=== PATIENT | male | born 1950 | race Caucasian/White ===

== ENCOUNTER → 2018-09-22 | Outpatient (CLI) | payer OTHER | LOC: CAT 12:31 | DX: Z13.6 Encounter for screening for cardiovascular disorders (principal); E78.00 Pure hypercholesterolemia, unspecified; I25.10 Atherosclerotic heart disease of native coronary artery without angina pectoris ==

== ENCOUNTER → 2019-06-07 | Outpatient (CLI) | payer OTHER, MEDICARE | LOC: SJCVCIMAG 09:42 | DX: I65.23 Occlusion and stenosis of bilateral carotid arteries (principal); I25.10 Atherosclerotic heart disease of native coronary artery without angina pectoris; E78.00 Pure hypercholesterolemia, unspecified; I10 Essential (primary) hypertension; R93.1 Abnormal findings on diagnostic imaging of heart and coronary circulation; R09.89 Other specified symptoms and signs involving the circulatory and respiratory systems ==

== ENCOUNTER → 2020-03-14 | Outpatient (CLI) | payer OTHER, MEDICARE | LOC: SJCVCIMAG 07:07 | PROVIDERS: ATTEND Internal Medicine Cardiovascular Disease | DX: I65.23 Occlusion and stenosis of bilateral carotid arteries (principal); I25.10 Atherosclerotic heart disease of native coronary artery without angina pectoris; E11.9 Type 2 diabetes mellitus without complications; I10 Essential (primary) hypertension; E78.5 Hyperlipidemia, unspecified; Z79.899 Other long term (current) drug therapy; Z87.891 Personal history of nicotine dependence ==

== ENCOUNTER 2020-12-02 12:42 | Emergency (ER) | payer OTHER ==
[~2020-12-02] VITALS: Ht 177.8 cm; Wt 79.4 kg
[2020-12-02 13:16] LABS: ABSOLUTE NEUTROPHILS 11.4 thou/uL (1.4-8.2); BASOPHILS 0.4 % (0.0-2.0); EOSINOPHILS 0.3 % (0.0-3.0); HEMATOCRIT 43.3 % (42.0-52.0); HEMOGLOBIN 14.6 gm/dL (14.0-18.0); LYMPHOCYTES 7.7 % (24.0-44.0); MCH 30.1 pg (26.0-34.0); MCHC 33.8 g/dL (28.0-37.0); MCV 89.2 fL (80.0-100.0); MONOCYTES 4.6 % (1.0-8.0); PLATELET COUNT 204 thou/uL (150-400); RBC 4.85 mil/uL (4.50-6.00); RDW 13.7 % (10.5-14.5); WBC 13.1 thou/uL (4.0-11.0)
[2020-12-02 13:24] LABS: ANION GAP 9 mmol/L (7-16); BUN 31 mg/dL (7-18); CHLORIDE 98 mmol/L (98-107); CO2 27 mmol/L (21-32); CREATININE 1.2 mg/dL (0.7-1.3); GLUCOSE 116 mg/dL (74-106); SODIUM 134 mmol/L (136-145)
[2020-12-02] MEDS ORDERED: NORVASC5 MG PO (13:27)
[2020-12-02] MEDS ORDERED: JARDIANCE25 MG PO (13:27)
[2020-12-02] MEDS ORDERED: IRBESARTAN-HCT1 EAC1 PO (13:27)
[2020-12-02] MEDS ORDERED: LIPITOR40 MG PO (13:27)
[2020-12-02] MEDS ORDERED: FAMOTIDINE 20 M20 MG PO (13:28)
[2020-12-02] MEDS ORDERED: METFORMIN HCL500 M3 PO (13:28)
[2020-12-02] MEDS ORDERED: ZETIA10 MG PO (13:28)
[2020-12-02] MEDS ORDERED: ASA81BEC PO (13:29)
[2020-12-02] MEDS ORDERED: MAGNESIUM250 M1 PO (13:29)
[2020-12-02] MEDS ORDERED: VITAMIN B-121000 MC2 SUBLING (13:30)
[2020-12-02] MEDS ORDERED: MELATONIN3 M2 PO (13:30)
[2020-12-02] MEDS ORDERED: D3 DOTS50 MCG PO (13:30)
[2020-12-02 13:34] LABS: ALBUMIN 4.4 g/dL (3.4-5.0); LIPASE 123 U/L (73-393); SGOT 15 U/L (15-37); SGPT 29 U/L (16-63); TOTAL BILIRUBIN 1.1 mg/dL (0.2-1.0); TOTAL PROTEIN 7.5 g/dL (6.4-8.2); TROPONIN-I <0.06 ng/mL (<0.06)
[2020-12-02 15:44] VITALS: BP 123/73
--- NOTE | 2020-12-03 08:12 | EKG ---
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
== END 2020-12-02 15:44 | disposition home or self-care (01) ==
LOC: ER 12:42
PROVIDERS: Emergency Medicine
DX: R07.89 Other chest pain (principal); Z79.84 Long term (current) use of oral hypoglycemic drugs; Z79.899 Other long term (current) drug therapy

== ENCOUNTER → 2020-12-12 | Outpatient (CLI) | payer OTHER ==
[~2020-12-12] MED LIST: ASA81BEC PO; D3 DOTS50 MCG PO; FAMOTIDINE 20 M20 MG PO; IRBESARTAN-HCT1 EAC1 PO; JARDIANCE25 MG PO; LIPITOR40 MG PO; MAGNESIUM250 M1 PO; MELATONIN3 M2 PO; METFORMIN HCL500 M3 PO; NORVASC5 MG PO; VITAMIN B-121000 MC2 SUBLING; ZETIA10 MG PO
== END ==
LOC: SJCVCIMAG
PROVIDERS: ATTEND Internal Medicine Cardiovascular Disease
DX: I65.23 Occlusion and stenosis of bilateral carotid arteries (principal); I25.10 Atherosclerotic heart disease of native coronary artery without angina pectoris; I10 Essential (primary) hypertension; R93.1 Abnormal findings on diagnostic imaging of heart and coronary circulation; E78.00 Pure hypercholesterolemia, unspecified; E11.9 Type 2 diabetes mellitus without complications; Z79.82 Long term (current) use of aspirin; Z79.84 Long term (current) use of oral hypoglycemic drugs; Z79.899 Other long term (current) drug therapy; Z87.891 Personal history of nicotine dependence; Z82.49 Family history of ischemic heart disease and other diseases of the circulatory system

== ENCOUNTER → 2021-07-10 | Outpatient (CLI) | payer OTHER | LOC: SJCVC 14:33 | PROVIDERS: ATTEND Internal Medicine Cardiovascular Disease | DX: R93.1 Abnormal findings on diagnostic imaging of heart and coronary circulation (principal); I10 Essential (primary) hypertension; E78.00 Pure hypercholesterolemia, unspecified; I65.23 Occlusion and stenosis of bilateral carotid arteries; E11.9 Type 2 diabetes mellitus without complications; I25.10 Atherosclerotic heart disease of native coronary artery without angina pectoris; Z87.891 Personal history of nicotine dependence; Z72.89 Other problems related to lifestyle; Z79.82 Long term (current) use of aspirin; Z79.899 Other long term (current) drug therapy ==